=== PATIENT | female | born 1975 | race Caucasian/White ===

== ENCOUNTER 2017-04-10 06:37 | Day surgery (SDC) | payer OTHER ==
[2017-04-10] VITALS (9 sets, daily range): BP systolic 120–143; BP diastolic 60–83; PULSE 60–88; TEMP 98.4–98.7
[~2017-04-10] VITALS: Ht 157.5 cm; Wt 85.8 kg
[2017-04-10] MEDS ORDERED: MOBIC15 MG PO (07:36)
[2017-04-10] MEDS ORDERED: ALEVE 220MG220 MG PO (07:36)
[2017-04-10] MEDS ORDERED: PERCOCET 325 MG1 TA2 PO (10:04)
[2017-04-10] MEDS ORDERED: MOTRIN 800800 MG/TAB PO (10:04)
== END 2017-04-10 17:23 | disposition home or self-care (01) ==
LOC: SDCO 06:37 → OB 13:20 → SDCO 17:23
DX: D26.1 Other benign neoplasm of corpus uteri (principal); D25.2 Subserosal leiomyoma of uterus; N92.0 Excessive and frequent menstruation with regular cycle; N88.8 Other specified noninflammatory disorders of cervix uteri; N80.8 Other endometriosis; N94.6 Dysmenorrhea, unspecified; E66.9 Obesity, unspecified; Z68.36 Body mass index [BMI] 36.0-36.9, adult; Z82.49 Family history of ischemic heart disease and other diseases of the circulatory system; Z80.1 Family history of malignant neoplasm of trachea, bronchus and lung
CPT/HCPCS: OP; A4315; J0690; J1100; J1885; J2405; J2704; J2710; J3010; J7120

== ENCOUNTER → 2022-07-01 | Outpatient (CLI) | payer BC ==
[~2022-07-01] MED LIST: ALEVE 220MG220 MG PO; MOBIC15 MG PO; MOTRIN 800800 MG/TAB PO; PERCOCET 325 MG1 TA2 PO
== END ==
LOC: MC.RAD 12:52
DX: Z12.31 Encounter for screening mammogram for malignant neoplasm of breast (principal)